=== PATIENT | female | born 1955 | race Caucasian/White ===

== ENCOUNTER 2017-05-23 09:12 | Emergency (ER) | payer OTHER ==
[2017-05-23] MEDS ORDERED: ASPIRIN PO ONE (09:18)
[2017-05-23 09:23] VITALS: BMI 24.0
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
[2017-05-23] MEDS ORDERED: ZOFRAN INJ 4 MG VIAL IVP ONE (09:32)
[2017-05-23] MEDS ORDERED: MORPHINE SULFATE INJ 2 MG INJ IVP ONE ×3 (09:32→11:23)
--- NOTE | 2017-05-23 09:32 | RAD ---
Chest, AP portable Indication: Mid sternal chest pain, shortness of breath Comparison: None Findings: The cardiac silhouette is unremarkable. The lungs are grossly clear without focal infiltrat e or pleural effusion. Impression: No acute chest process. Reported By:
[2017-05-23] MEDS ORDERED: MORPHINE SULFATE INJ 2 MG INJ ONE ×3 (09:34→11:18)
[2017-05-23] MEDS ORDERED: ASPIRIN ONE (09:34)
[2017-05-23] MEDS ORDERED: ZOFRAN INJ 4 MG VIAL ONE (09:34)
[2017-05-23 09:46] LABS: BASOPHILS # (AUTO) 0.1 X10^3/uL (0.0-0.1); BASOPHILS % (AUTO) 0.8 % (0.2-1.0); EOSINOPHILS % (AUTO) 0.2 % (0.9-2.9); HEMATOCRIT 38.8 % (36.0-47.0); HEMOGLOBIN 13.1 g/dL (12.0-16.0); MEAN CORPUSCULAR HGB CONC 33.9 g/dL (33.0-35.0); MEAN CORPUSCULAR VOLUME 85.5 fL (80.0-100.0); MEAN PLATELET VOLUME 9.6 fL (7.4-11.0); MONOCYTES # (AUTO) 0.5 x10^3/uL (0.3-0.8); MONOCYTES % (AUTO) 4.1 % (0.0-13.0); NEUTROPHILS # (AUTO) 10.6 x10^3/uL (2.2-4.8); NEUTROPHILS % (AUTO) 79.9 % (42.0-75.0); PLATELET COUNT 274 X10^3/uL (150.0-450.0); RED BLOOD COUNT 4.54 X10^6/uL (3.5-5.4); RED CELL DISTRIBUTION WIDTH 13.4 % (11.6-16.5); WHITE BLOOD COUNT 13.3 X10^3/uL (3.6-10.0)
[2017-05-23 10:24] LABS: ALBUMIN 3.7 g/dL (3.4-5.0); ALKALINE PHOSPHATASE 72 Units/L (46-116); ASPARTATE AMINO TRANSFERASE 28 Units/L (15-37); BLOOD UREA NITROGEN 23 mg/dL (7-18); CALCIUM 9.2 mg/dL (8.5-10.1); CARBON DIOXIDE 24.4 mmol/L (21-32); CHLORIDE 105 mmol/L (98-107); CKMB % 9.3 % (<4); COR NA(FOR HYPERGLY) 143 mmol/L (136-145); CREATINE KINASE 131 Units/L (26-192); CREATININE 1.22 mg/dL (0.55-1.02); MAGNESIUM 1.9 mg/dL (1.7-2.9); SODIUM 141 mmol/L (136-145); TOTAL PROTEIN 7.8 g/dL (6.4-8.2); eGFR BLACK RACES 57 (>60); eGFR NON BLACK RACES 47 (>60)
[2017-05-23 10:27] LABS: CREATINE KINASE MB 12.2 ng/mL (0-4.0)
[2017-05-23 10:28] LABS: TROPONIN I 2.23 ng/mL (0-1.5)
[2017-05-23 10:35] LABS: ALANINE AMINOTRANSFERASE 15 Units/L (12-78)
[2017-05-23] MEDS ORDERED: NITROSTAT SL PRN (10:41)
[2017-05-23] MEDS ORDERED: NITROGLYCERIN IV PREMIX 50 MG 50 MG/250 ML BAG IV ONE (10:55)
[2017-05-23] MEDS ORDERED: NS 1000 ML 1,000 ML ONE (10:55)
[2017-05-23] MEDS ORDERED: NITROGLYCERIN IV PREMIX 50 MG 50 MG/250 ML BAG IV PRN (11:09)
[2017-05-23] MEDS ORDERED: ATIVAN INJ 2 MG VIAL ONE (11:24)
[2017-05-23] MEDS ORDERED: ATIVAN INJ 2 MG VIAL IVP ONE (11:25)
[2017-05-23 11:27] VITALS: BP 153/73
[2017-05-26 08:49] LABS: ABG BASE EXCESS -0.4 mmol/L (-2.0-2.0); ABG HCO3 21.6 mmol/L (22-26); FRACTIONATED INSPIRED OXYGEN 28
[2017-05-26 08:50] LABS: ABG ALLEN TEST POS
== END 2017-05-23 12:05 | disposition short-term general hospital (02) ==
LOC: ER 09:16
DX: I21.9 Acute myocardial infarction, unspecified (principal); I21.4 Non-ST elevation (NSTEMI) myocardial infarction; R94.31 Abnormal electrocardiogram [ECG] [EKG]
CPT/HCPCS: 36415; 36600; 71045; 80053; 82550; 82553; 82803; 83735; 84484; 85025; 85610; 85730; 93005; 93010; 96365; 96367; 96374; 96375; 99285; A4222; J2060; J2270; J2405

== ENCOUNTER → 2017-07-03 | Outpatient (CLI) | payer OTHER ==
[2017-06-07 18:29] VITALS: BP 131/60
[~2017-07-03] MED LIST: NS 100 ML IV 100 ML IV ONE
[2017-07-03 11:52] LABS: CREATININE 1.08 mg/dL (0.55-1.02)
--- NOTE | 2017-07-03 14:49 | CT ---
CTA OF THE ABDOMEN AND PELVIS AND BILATERAL LOWER EXTREMITY RUNOFF WITHOUT AND WITH CONTRAST CLINICAL INDICATION: Peripheral vascular disease. Right leg pain. Recent right leg catheterization. TECHNIQUE: Written informed consent was obtained. Non-gated spiral axial images of the lower thorax, abdomen, pelvis and lower extremities were obtained with nonionic intravenous contrast. 3D reconstru ctions were performed. Dose reduction techniques including Automated Exposure Control (AEC) and adjus tment of mA and kV were utlized. COMPARISON: None. FINDINGS: VASCULAR: Abdominal Aorta: No significant stenosis. Celiac [place]: No significant stenosis. Superior Mesenteric Artery: Calcified stenosis at the origin of the SMA. Distal patency appears to be maintained Renal Arteries: No significant stenosis. Inferior Mesenteric Artery: No significant stenosis. RIGHT PELVIS/LOWER EXTREMITY: Right Common Iliac Artery: No significant stenosis. Right Internal Iliac Artery: No significant stenosis. Right External Iliac Artery: Approximately 50% stenosis of the right common iliac artery which is int rinsically diminutive. Right Common Femoral Artery: Right common femoral artery appears completely occluded for example seri es 7, image 88 becomes reconstituted. Right Profunda Femoris Artery: No significant stenosis. Right Superficial Femoral Artery: No significant stenosis. Right Popliteal Artery: No significant stenosis. Right Anterior Tibial Artery: No significant stenosis. Crosses the ankle to supply the dorsalis pedi s artery. Right Tibioperoneal Trunk: No significant stenosis. Right Posterior Tibial Artery: No significant stenosis. Crosses the ankle to supply the plantar arch . Right Peroneal Artery: No significant stenosis. LEFT PELVIS/LOWER EXTREMITY: Left Common Iliac Artery: No significant stenosis. Left Internal Iliac Artery: No significant stenosis. Left External Iliac Artery: No significant stenosis. Left Common Femoral Artery: No significant stenosis. Left Profunda Femoris Artery: No significant stenosis. Left Superficial Femoral Artery: No significant stenosis. Left Popliteal Artery: No significant stenosis. Left Anterior Tibial Artery: No significant stenosis. Crosses the ankle to supply the dorsalis pedis artery. Left Tibioperoneal Trunk: No significant stenosis. Left Posterior Tibial Artery: No significant stenosis. Crosses the ankle to supply the plantar arch. Left Peroneal Artery: No significant stenosis. Abdomen without: No gallstones, renal stones or proximal ureteral stones. Abdomen with: Liver and spleen are normal in size, enhancement characteristics and contour. No focal lesions. The portal vein is patent. No ductal dilitation. Gallbladder is present. No gallbladder wall thickening. The pancreas is unremarkable. Adrenal glands are normal. Kidneys enhance symmetrically w ithout hydronephrosis. No bowel obstruction or inflammation. No abnormal appearing mesenteric or retroperitoneal lymph node s. No free fluid or fluid collections. Pelvis without: No distal ureteral stones or bladder stones. Pelvis with: The bladder is normal in appearance. Uterus appears to be absent. No free fluid or abno rmal pelvic lymph nodes. No aggressive osseous lesions. IMPRESSION: 1. 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 Reported By:
== END | disposition home or self-care (01) | DRG 301 ==
LOC: RAD 11:29
PROVIDERS: ATTEND Physician Assistant
DX: I73.89 Other specified peripheral vascular diseases (principal); I70.92 Chronic total occlusion of artery of the extremities
CPT/HCPCS: 36415; 73706; 82565; 84520; A4222